=== PATIENT | male | born 1960 | race Caucasian/White ===

== ENCOUNTER → 2020-05-12 | Outpatient (CLI) | payer OTHER | LOC: LABNPT 19:16 | PROVIDERS: ATTEND Family Medicine | DX: U07.1 COVID-19 (principal) | CPT/HCPCS: 84145; 87635 ==

== ENCOUNTER → 2020-05-15 | Outpatient (CLI) | payer OTHER | LOC: GIR 12:45 | PROVIDERS: ATTEND Internal Medicine | DX: Z01.89 Encounter for other specified special examinations (principal) | CPT/HCPCS: 84145 ==